=== PATIENT | female | born 1960 | race Caucasian/White ===

== ENCOUNTER 2019-12-18 12:36 | Outpatient (CLI) | payer BC, SELFPAY ==
--- NOTE | ~2019-12-18 | CT_ITS ---
EXAMINATION: CT IAC/mastoids BI w con DATE: 12/18/2019 13:15 INDICATION: Left-sided mastoiditis and pain. TECHNIQUE: Computed tomography (CT) of the temporal bones was performed with 75 mL Omnipaque 350 intr avenous contrast. Automated exposure control and iterative reconstruction technique were employed. Th e dose-length product was 208.09 mGy-cm. COMPARISON: Temporal bone CT 06/12/2008 FINDINGS: RIGHT TEMPORAL BONE: The internal auditory canal, cochlea, vestibule, semicircular canals, vestibular aqueduct, carotid ca nal, jugular bulb, facial nerve course, ossicles, Prussak space, scutum, tympanic membrane, mastoid a ir cells, and external auditory canal are normal. LEFT TEMPORAL BONE: The internal auditory canal, cochlea, vestibule, semicircular canals, vestibular aqueduct, jugular bu lb, carotid canal, facial nerve course, ossicles, Prussak space, scutum, tympanic membrane, mastoid a ir cells, and external auditory canal are normal. IMPRESSION: 1. Normal temporal bones. Reviewed, dictated and finalized at location A. ER BATH IMPRESSION: 1. Normal temporal bones.
[2019-12-18 13:44] LABS: Hematocrit 41.1 % (37.0-47.0); Hemoglobin 13.1 g/dL (12.0-15.0); Mean Corpuscular HGB Conc 31.9 g/dl (32-36); Mean Corpuscular Hemoglobin 28.6 pg (26-34); Mean Corpuscular Volume 89.7 fl (80-100); Mean Platelet Volume 11.9 fl (7.4-10.4); Platelet Count Result 151 k/mm3 (150-375); Red Blood Count 4.58 M/mm3 (4.2-5.4)
[2019-12-18 13:57] LABS: Alanine Aminotransferase 20 U/L (4-35); Albumin Level 3.7 g/dL (3.5-5.1); Alkaline Phosphatase 52 U/L (38-126); Aspartate Amino Transferase 26 U/L (14-36); Bilirubin,Total 0.4 mg/dL (0.2-1.3); Blood Urea Nitrogen 16 mg/dL (7-17); Calcium 8.7 mg/dL (8.4-10.2); Carbon Dioxide 30 mmol/L (22-30); Chloride 95 mmol/L (98-107); Estimated Glomerular Filt Rate > 60; Glucose 83 mg/dL (65-105); Sodium 135 mmol/L (137-145)
== END 2019-12-18 12:37 | disposition home or self-care (01) ==
LOC: ANHIMG 12:40
PROVIDERS: PCP Family Medicine; Visit Provider Physician Assistant Medical
DX: H70.002 Acute mastoiditis without complications, left ear (principal)
CPT/HCPCS: 36415; 70481; 80053; 85027; Q9967

== ENCOUNTER 2020-03-16 12:59 | Outpatient (CLI) | payer BC, SELFPAY ==
--- NOTE | 2020-03-16 13:01 | ECG_ITS ---
Measurements Intervals [place] Rate: 57 P: 50 MO: 165 QRS: 55 QRSD: 83 T: 28 QT: 434 QTc: 423 Interpretive Statements SINUS BRADYCARDIA BORDERLINE ECG Electronically Signed On 03-16-2020 13:32:07 CDT by Jhon Bryson D.O.
[2020-03-16 13:47] LABS: Blood Urea Nitrogen 16 mg/dL (7-17); Calcium 8.8 mg/dL (8.4-10.2); Carbon Dioxide 29 mmol/L (22-30); Chloride 101 mmol/L (98-107); Estimated Glomerular Filt Rate > 60; Glucose 82 mg/dL (65-105); Potassium 4.2 mmol/L (3.4-5.0); Sodium 134 mmol/L (137-145)
== END 2020-03-16 13:00 | disposition home or self-care (01) ==
LOC: ANHSURGERY 13:01
PROVIDERS: Physician Assistant Medical; PCP Family Medicine; Visit Provider Obstetrics & Gynecology
DX: E87.1 Hypo-osmolality and hyponatremia (principal); E78.00 Pure hypercholesterolemia, unspecified; R10.2 Pelvic and perineal pain; R94.31 Abnormal electrocardiogram [ECG] [EKG]
CPT/HCPCS: 36415; 80048; 86850; 86900; 86901; 93005

== ENCOUNTER 2020-03-18 00:28 | Outpatient (CLI) | payer BC, SELFPAY ==
[2020-03-18 17:43] LABS: SARS-CoV-2 RNA PCR Negative
== END 2020-03-18 00:29 | disposition home or self-care (01) ==
LOC: ANHCOVIDDT 00:28
PROVIDERS: PCP Family Medicine; Visit Provider Obstetrics & Gynecology
DX: Z01.818 Encounter for other preprocedural examination (principal); Z11.59 Encounter for screening for other viral diseases
CPT/HCPCS: 87635; C9803; U0003

== ENCOUNTER 2020-03-20 01:06 | Day surgery (SDC) | payer BC, SELFPAY ==
[2020-03-13 08:25] VITALS: BMI 25.4
--- NOTE | 2020-03-19 07:48 | PM.IMHP ---
H&P: HPI History of Present Illness Chief complaint: Pelvic Pain Narrative: Kylah Rodriguez is a 59 year old female Status post hysterectomy and bilateral salpingo-oophorectomy who is admitted for laparoscopy. She has pain, discomfort, it is GALE a. She had an ultrasound which was negative. Risks and benefits of this procedure reviewed in great detail. She had all questions answered. She received the [employer] handout entitled laparoscopy. She asked to proceed Review of Systems Review of Systems: All systems reviewed & are unremarkable except as noted in HPI and below PMFSH Family History Family History Father Hypertension Cerebrovascular accident Family history of coronary artery disease Acute myocardial infarction Mother Hypertension Family history of diabetes mellitus in first degree relative Other Diabetes mellitus Family history of allergic disorder Family history of kidney stones Family history of malignant neoplasm of bone Family history of malignant neoplasm of brain Family history of malignant neoplasm of breast Family history of malignant neoplasm of male breast Social History Social History Smoking status: Never smoker Alcohol intake: never Meds Home Medications and Allergies Home Medications Medication Instructions Recorded Confirmed Type aspirin 81 mg tablet,delayed 81 mg PO DAILY 09/16/19 03/13/20 History release estradiol 2 mg tablet 2 mg PO DAILY 09/16/19 03/13/20 History lovastatin 40 mg tablet 40 mg PO DAILY 09/16/19 03/13/20 History trazodone 50 mg tablet 50 mg PO HS PRN 09/16/19 03/13/20 History omeprazole 40 mg capsule,delayed 40 mg PO DAILY #90 cap 10/04/19 03/13/20 Rx release tramadol 50 mg tablet 50 mg PO Q6H PRN #60 tablet 01/21/20 03/13/20 Rx alprazolam 0.5 mg tablet 0.5 mg PO TID PRN #60 tablet 01/24/20 03/13/20 Rx acetaminophen-codeine 1 tablet PO Q4H PRN 03/13/20 03/13/20 History [Tylenol-Codeine #3] azelastine 1 spray INTRANASAL Q12H 03/13/20 03/13/20 History buspirone 7.5 mg PO BID 03/13/20 03/13/20 History cetirizine 10 mg PO QPM 03/13/20 03/13/20 History magnesium 250 mg PO DAILY 03/13/20 03/13/20 History vitamin B complex 1 tablet PO DAILY 03/13/20 03/13/20 History vitamin E 400 unit PO DAILY 03/13/20 03/13/20 History escitalopram oxalate 20 mg tablet 20 mg PO DAILY #90 tablet 03/17/20 Rx Allergies Allergy/AdvReac Type Severity Reaction Status Date / Time lidocaine Allergy Unknown Hives Verified 03/13/20 08:02 ADHESIVE BANDAGE Allergy Mild Hives Uncoded 03/13/20 08:02 Exam Const: General: no acute distress Eyes: General: appearance normal, both eyes and all related structures Neck: Neck: supple and no JVD Thyroid: thyroid normal Resp: Effort & Inspection: normal respiratory effort Auscultation: clear to auscultation bilaterally Cardio: Rate: regular rate Rhythm: regular rhythm GI: Inspection: non-distended GI Palp: Yes Soft to palpation, No Tenderness to palpation present (GI) and No Guarding due to palpation present (GI) Auscultation: normal bowel sounds : General: Yes bladder normal to palpation External Female Exam: normal external appearance Speculum Exam - Vagina: normal appearance of the vagina Speculum Exam - Cervix: Cervix absent Bimanual exam- vagina & uterus: uterus absent Bimanual Exam- Adnexa, other: tender bilaterally Skin: General skin exam: no rashes or lesions noted Extrem: General: normal to inspection and no edema Psych: Mental Status: mental status grossly normal Affect: normal affect Assessment and Plan Additional Plan Impression: Pelvic pain Plan: Diagnostic laparoscopy
[2020-03-20] VITALS (7 sets, daily range): BP systolic 99–114; BP diastolic 55–82; PULSE 51–67; RESP 12–20; TEMP 35.8–36.1; O2SAT 97–100
--- NOTE | 2020-03-20 06:38 | WPDHPUPDATE1 ---
History and Physical Update Update Date/Time: 03/20/20 06:38 History and Physical has been reviewed, including an updated exam of the patient. There are NO changes in the patient's condition. Risks, benefits, and alternatives have been discussed and questions answered. Patient agrees to proceed with procedure.
[2020-03-20] MEDS: LACTATED RINGERS 1,000 ML 30 ML IV CONT ×2 (10:30→11:54)
--- NOTE | 2020-03-20 10:34 | P.PNAN_ITS ---
Anes - Initial Pre Proc Eval Procedure: Operation Date: 03/20/20 11:30 Proposed Procedures p Diagnostic Laparoscopy - Vahid Abreu MD Date/Time: 03/20/20 10:34 Surgeon: Vahid Abreu MD Pre Op Diagnosis: Pelvic Pain Patient Data Age: 59 Gender: F Height: 5 ft 4 in Weight: 67.13 kg Allergies Allergy/AdvReac Type Severity Reaction Status Date / Time lidocaine Allergy Unknown Hives Verified 03/13/20 08:02 ADHESIVE BANDAGE Allergy Mild Hives Uncoded 03/13/20 08:02 Home Medications Medication Instructions Recorded Confirmed Type aspirin 81 mg tablet,delayed 81 mg PO DAILY 09/16/19 03/13/20 History release estradiol 2 mg tablet 2 mg PO DAILY 09/16/19 03/13/20 History lovastatin 40 mg tablet 40 mg PO DAILY 09/16/19 03/13/20 History trazodone 50 mg tablet 50 mg PO HS PRN 09/16/19 03/13/20 History omeprazole 40 mg capsule,delayed 40 mg PO DAILY #90 cap 10/04/19 03/13/20 Rx release tramadol 50 mg tablet 50 mg PO Q6H PRN #60 tablet 01/21/20 03/13/20 Rx alprazolam 0.5 mg tablet 0.5 mg PO TID PRN #60 tablet 01/24/20 03/13/20 Rx acetaminophen-codeine 1 tablet PO Q4H PRN 03/13/20 03/13/20 History [Tylenol-Codeine #3] azelastine 1 spray INTRANASAL Q12H 03/13/20 03/13/20 History buspirone 7.5 mg PO BID 03/13/20 03/13/20 History cetirizine 10 mg PO QPM 03/13/20 03/13/20 History magnesium 250 mg PO DAILY 03/13/20 03/13/20 History vitamin B complex 1 tablet PO DAILY 03/13/20 03/13/20 History vitamin E 400 unit PO DAILY 03/13/20 03/13/20 History escitalopram oxalate 20 mg tablet 20 mg PO DAILY #90 tablet 03/17/20 Rx hydrocodone-acetaminophen [[place]] 1 tablet PO Q4H PRN #30 tablet 03/20/20 Rx Patient hx anesthesia problems: none Family hx anesthesia problems: none PMFSH Past Medical History Medical History (Updated 03/20/20 @ 10:30 by Jamie Perla MD) Anxiety disorder, unspecified Depression Migraine Family History Family History Father Hypertension Cerebrovascular accident Family history of coronary artery disease Acute myocardial infarction Mother Hypertension Family history of diabetes mellitus in first degree relative Other Diabetes mellitus Family history of allergic disorder Family history of kidney stones Family history of malignant neoplasm of bone Family history of malignant neoplasm of brain Family history of malignant neoplasm of breast Family history of malignant neoplasm of male breast Social History Social History Smoking status: Never smoker Alcohol intake: never Anes - Eval Final PreProcedure Day of Procedure 03/20/20 10:34 Patient weight: normal Heart: regular rate and rhythm Lungs: clear to auscultation Airway: Mallampati scale class II Neurological: alert and oriented Last oral intake: >/= 8 hours ASA classification: II Emergent: no Anesthetic plan: proceed Anesthesia type and monitoring: general ETT and standard monitoring Informed Consent: The patient's anesthetic plan and its attendant risks and benefits were discussed with the patient/family/POA. Questions were solicited and answers provided to the satisfaction of the patient/family/POA.
--- NOTE | 2020-03-20 11:45 | PM.PROC ---
Procedure Note - Detailed Date of procedure: 03/20/20 Pre-op diagnosis: Pelvic Pain Surgeon: Vahid Abreu MD Postop diagnosis: Pelvic pain/adhesions Procedure: Laparoscopic lysis of adhesions Anesthesia: General endotracheal EBL: 5cc Findings: Absent uterus ovaries and tubes. Multiple areas of adhesions from large and small bowel to the pelvis. Complications: None Description of procedure: The patient was prepped draped in normal sterile fashion placed in the dorsal lithotomy position. Under excellent general endotracheal anesthesia weighted speculum placed posterior fornix vagina. Sponge stick was placed in vagina and the bladder blade in specimen was removed. Gloves were changed. An infraumbilical incision made and the Veress needle passed in the abdomen. Abdomen filled with CO2 gas to 15mm Hg. 5mm trocar advanced under direct visualization assuring no injury. Patient placed in Trendelenburg and a suprapubic incision made. Five trocar was advanced visualization. The above findings were seen using sharp dissection occasional cautery the adhesions brought down a sponge stick was placed in the vagina used to move back and forth to simulate wants and aspirated was noted no other abnormalities were seen. The gas was removed from the abdomen. The lower and upper site removed. The incisions closed with 4 O Monocryl and glue. Patient went to recovery in satisfactory condition. All sponge, needle, instrument counts were correct. There were no immediate complications
--- NOTE | 2020-03-20 13:10 | SUR.PHASEII ---
1310 spoke with and gave him an update, he is headed this way to [facility]
== END 2020-03-20 13:37 | disposition home or self-care (01) ==
PROVIDERS: PCP Family Medicine; Visit Provider Obstetrics & Gynecology
PROC: (CPT 49320; principal; 2020-03-20 11:30)
DX: N73.6 Female pelvic peritoneal adhesions (postinfective) (principal); R10.2 Pelvic and perineal pain; F41.8 Other specified anxiety disorders; Z79.82 Long term (current) use of aspirin
CPT/HCPCS: 58660; A9270; J0131; J0330; J1100; J2250; J2590; J2704; J3010; J7030; J7120

== ENCOUNTER 2020-04-14 16:01 | Outpatient (CLI) | payer BC, SELFPAY ==
--- NOTE | ~2020-04-14 | MM_ITS ---
EXAMINATION: MM screening [facility] BI w ozzie HISTORY: Screening mammogram TECHNIQUE: Craniocaudal and mediolateral oblique 3-D tomosynthesis images were obtained and synthetic 2-D images were generated. CAD analysis was submitted and interpreted. COMPARISON: Comparison to multiple prior studies sequentially, with oldest reviewed study dated 02/28. BREAST PARENCHYMAL COMPOSITION: There are scattered areas of fibroglandular density. FINDINGS: There is no evidence of suspicious mass, calcification, or architectural distortion to sugg est malignancy in either breast. There has been no suspicious interval change. IMPRESSION: 1. No mammographic evidence of malignancy. 2. Recommend routine screening mammography in one year. BI-RADS Category 1: Negative Reviewed, dictated and finalized at location A.
== END 2020-04-14 16:02 | disposition home or self-care (01) ==
LOC: ANHIMG 16:02
PROVIDERS: PCP Family Medicine; Visit Provider Obstetrics & Gynecology
DX: Z12.31 Encounter for screening mammogram for malignant neoplasm of breast (principal)
CPT/HCPCS: 77063; 77067

== ENCOUNTER 2020-05-08 01:21 | Outpatient (CLI) | payer BC, SELFPAY ==
[2020-05-09 18:47] LABS: SARS-CoV-2 RNA PCR Negative
== END 2020-05-08 01:22 | disposition home or self-care (01) ==
LOC: ANHCOVIDDT 01:21
PROVIDERS: PCP Family Medicine; Visit Provider Orthopaedic Surgery
DX: Z01.818 Encounter for other preprocedural examination (principal); Z11.59 Encounter for screening for other viral diseases
CPT/HCPCS: 87635; C9803; U0003

== ENCOUNTER 2020-05-11 00:55 | Day surgery (SDC) | payer BC, SELFPAY ==
[2020-05-04 12:08] VITALS: BMI 24.0
[2020-05-11] VITALS (7 sets, daily range): BP systolic 118–139; BP diastolic 61–94; PULSE 59–78; RESP 7–20; TEMP 36.3–36.6; O2SAT 96–100
--- NOTE | ~2020-05-11 | XR_ITS ---
XR surgery orthopedic 05/11/2020 10:00 Indication: Right foot surgery. Right second crossover toe. Procedure: 4 views right foot. 4 seconds of fluoroscopy. Comparison: No prior studies for comparison. Findings: There are surgical changes consistent with second metatarsal osteotomy with pin placement. There is anatomic alignment post reduction. Impression: 1: Postsurgical changes of the second digit consistent with metatarsal osteotomy. Please refer to pro cedural report for details. Reviewed, dictated and finalized at location A. Impression: 1: Postsurgical changes of the second digit consistent with metatarsal osteotom y. Please refer to procedural report for details.
--- NOTE | 2020-05-11 07:00 | WPDHPUPDATE1 ---
History and Physical Update Update Date/Time: 05/11/20 07:00 History and Physical has been reviewed, including an updated exam of the patient. There are NO changes in the patient's condition. Covid test negative. Risks, benefits, and alternatives have been discussed and questions answered. Patient agrees to proceed with procedure.
--- NOTE | 2020-05-11 07:35 | P.PNAN_ITS ---
Anes - Initial Pre Proc Eval Procedure: Operation Date: 05/11/20 09:30 Proposed Procedures p Right Foot Second Crossover Toe Reconstruction, Right Foot Metatarsal Osteotomy - Efren Trevizo MD Date/Time: 05/11/20 07:35 Surgeon: Efren Trevizo MD Pre Op Diagnosis: Right Second Crossover Toe Patient Data Age: 59 Gender: F Height: 1.63 m Weight: 63.5 kg Allergies Allergy/AdvReac Type Severity Reaction Status Date / Time lidocaine Allergy Severe Hives Verified 05/04/20 11:58 latex Allergy Unknown Rash Verified 05/04/20 11:58 ADHESIVE BANDAGE Allergy Mild Hives Uncoded 05/04/20 11:58 Home Medications Medication Instructions Recorded Confirmed Type aspirin 81 mg tablet,delayed 81 mg PO DAILY 09/16/19 05/04/20 History release estradiol 2 mg tablet 2 mg PO DAILY 09/16/19 05/04/20 History trazodone 50 mg tablet 50 mg PO HS PRN 09/16/19 05/04/20 History tramadol 50 mg tablet 50 mg PO Q6H PRN #60 tablet 01/21/20 05/04/20 Rx alprazolam 0.5 mg tablet 0.5 mg PO TID PRN #60 tablet 01/24/20 05/04/20 Rx buspirone 7.5 mg PO BID 03/13/20 05/04/20 History cetirizine 10 mg PO QPM 03/13/20 05/04/20 History magnesium 250 mg PO DAILY 03/13/20 05/04/20 History vitamin B complex 1 tablet PO DAILY 03/13/20 05/04/20 History vitamin E 400 unit PO DAILY 03/13/20 05/04/20 History escitalopram oxalate 20 mg tablet 20 mg PO DAILY #90 tablet 03/17/20 05/04/20 Rx lovastatin 40 mg tablet 40 mg PO DAILY #90 tablet 04/29/20 05/04/20 Rx omeprazole 40 mg PO DAILY PRN 05/04/20 05/04/20 History Patient hx anesthesia problems: none Family hx anesthesia problems: none PMFSH Past Medical History Medical History (Updated 05/11/20 @ 07:35 by Patel Duncan DO) Anxiety disorder, unspecified Chronic pain Depression GERD (gastroesophageal reflux disease) Hyperlipidemia Migraine Surgical History Surgical History (Updated 05/11/20 @ 07:35 by Patel Duncan DO) History of History of hysterectomy History of tonsillectomy Social History Social History Years smoked: 2 Smoking status: Current some day smoker Tobacco type: cigarettes Alcohol intake: never Substance use: current Substance use type: marijuana Other substance usage details: occassional Last use: 2 days ago Living arrangements: with family Spiritual care concerns: No Anes - Eval Final PreProcedure Day of Procedure 05/11/20 07:35 Patient weight: normal Heart: regular rate and rhythm Lungs: clear to auscultation and normal air movement Airway: Mallampati scale class II Neurological: alert and oriented Last oral intake: >/= 8 hours ASA classification: III Emergent: no Anesthetic plan: proceed Anesthesia type and monitoring: general LMA and standard monitoring Informed Consent: The patient's anesthetic plan and its attendant risks and benefits were discussed with the patient/family/POA. Questions were solicited a nd answers provided to the satisfaction of the patient/family/POA.
[2020-05-11] MEDS: ACETAMINOPHEN 500 MG TABLET 1000 MG PO (08:10)
[2020-05-11] MEDS: LACTATED RINGERS 1,000 ML 30 ML IV CONT ×2 (08:15→10:12)
[2020-05-11] MEDS: KETOROLAC 15 MG/ML VIAL (*BKC) IV PUSH (08:20)
[2020-05-11] MEDS: ceFAZolin 2 GM/D5W 50 ML 2 GM/50 ML BAG IVPB (08:52)
--- NOTE | 2020-05-11 10:37 | PM.PROC ---
Procedure Note - Detailed Date of procedure: 05/11/20 Pre-op diagnosis: Right Second Crossover Toe Post-op diagnosis: same Procedure performed: Right 2nd crossover toe reconstruction, 2nd metatarsal osteotomy Description of procedure: Indications: Patient is a 59-year-old woman with a right 2nd crossover toe deformity, relatively long 2nd toe and forefoot pain. Initially had an injury 1 year ago. Attempted conservative treatment without improvement. Presents now for operative treatment. What was done: Patient identified in the preoperative holding. Informed consent given. Operative extremity marked. Patient received intravenous antibiotics. Patient brought to the operating room where underwent general anesthetic by anesthesia team. Positioned supine on operating room table. Time-out performed confirming the patient, site of the surgery and the plan. Right foot prepped draped usual sterile surgical fashion using a ChloraPrep skin solution. Foot and ankle exsanguinated and calf tourniquet inflated to 225 mmHg. Dorsal longitudinal incision made over the 2nd metatarsophalangeal joint with 15 blade knife. Hemostasis controlled electrocautery. Extensor tendon retracted laterally and a dorsal capsulotomy performed. Joint inspected and a tear of the plantar lateral plantar plate noted. Excessive length of the 2nd toe corrected with a 2nd metatarsal osteotomy. Sagittal saw used to make a horizontal osteotomy at the dorsal aspect of the metatarsal head. Metatarsal head fragment allowed to shorten 3 mm and provisionally pinned and checked with image intensification. Fixation achieved with a 2.5 mm twist off screw with good fixation noted. Wound thoroughly irrigated. Plantar plate then addressed. Size 0 FiberWire passed through the plantar plate after completely releasing it from the proximal phalanx. 0.062 in K-wires used to drill 2 holes in the base of the proximal phalanx. Suture passed through the proximal phalanx and with the toe in a corrected plantar flex position suture tied over the dorsum of the proximal phalanx. Foot was placed in neutral and good alignment of the toe was noted. Image intensification confirmed position. Wound thoroughly irrigated. Capsule closed with 3 0 Monocryl interrupted suture. Subcutaneous tissue repaired with 3 0 Monocryl interrupted suture and skin repaired with 4 O nylon running suture. Sterile dressing applied. The patient was then woken from anesthesia, extubated and taken to the recovery room in stable condition. All sponge, needle, instrument counts were correct at the end of the case. Implants: Arthrex 2.5 mm x 11 mm twist off screw Anesthesia: GLMA Surgeon: Efren Trevizo MD Banking Teacher: 1st project construction assistant manager Estimated blood loss (mL): 5 Tourniquet time (min): 60 Drains: No Packing: No Pathology: none sent Complications: None Condition: stable Disposition: PACU
== END 2020-05-11 11:37 | disposition home or self-care (01) ==
PROVIDERS: PCP Family Medicine; Visit Provider Orthopaedic Surgery
PROC: (CPT 28750; principal; 2020-05-11 09:30)
DX: M20.5X1 Other deformities of toe(s) (acquired), right foot (principal); E78.5 Hyperlipidemia, unspecified; F41.8 Other specified anxiety disorders; K21.9 Gastro-esophageal reflux disease without esophagitis; G89.29 Other chronic pain; Z79.82 Long term (current) use of aspirin; F17.210 Nicotine dependence, cigarettes, uncomplicated; F12.90 Cannabis use, unspecified, uncomplicated
CPT/HCPCS: 28313; 28308; A9270; C1713; J0690; J1100; J1200; J1885; J2250; J2405; J2704; J3010; J7120

== ENCOUNTER → 2020-11-26 12:14 | Outpatient (CLI) | payer BC, SELFPAY ==
--- NOTE | ~2020-11-26 | MR_ITS ---
EXAMINATION: MR hip RT wo con DATE: 11/26/2020 13:28 INDICATION: Right hip pain TECHNIQUE: Magnetic resonance imaging (MRI) of the right hip was performed without intravenous contr ast. Sequences included full-field axial PD-weighted FS FSE and T1-weighted FSE, coronal of the pelvi s with PD-weighted FS FSE, small field of view of the right hip with axial PD-weighted FS FSE, sagit benjamin PD-weighted FS FSE and coronal PD weighted FS FSE. Additional radial T1-weighted FGR oriented ort hogonal to the acetabular rim were obtained for evaluation of the labrum. COMPARISON: Right hip radiographs dated 11/19/2020 FINDINGS: Bones/labrum/cartilage: Alignment is normal. No fracture, avascular necrosis or pathologic marrow replacing process. Labrum is normal. Articular cartilage is normal. Fluid: Symmetric physiologic amount of fluid within both hip joints. Soft tissues: Normal and symmetric muscle bulk and signal in the pelvis and visualized proximal thighs. Mild right gluteus medius tendinopathy without discrete tear. The remaining bilateral gluteal tendons are normal . The iliopsoas and proximal hamstring tendons are normal. The uterus is not identified and has likel y been surgically resected. Limited evaluation of visceral organs of the pelvis is otherwise unremark able. No pathologically enlarged pelvic/inguinal lymphadenopathy. IMPRESSION: 1. Mild gluteus medius tendinopathy without discrete tear. Reviewed, dictated and finalized at location A. [employer]
--- NOTE | ~2020-11-26 | MR_ITS ---
EXAMINATION: MR knee RT wo con DATE: 11/26/2020 13:08 INDICATION: Right knee pain TECHNIQUE: Magnetic resonance imaging (MRI) of the right knee was performed without intravenous contr ast. Sequences included coronal PD-weighted FSE, coronal PD-weighted FS FSE, sagittal T2-weighted FS E, sagittal PD-weighted FS FSE and axial PD weighted fat saturated FSE. COMPARISON: None. FINDINGS: Medial compartment: Longitudinal horizontal tear extending to approximately the midpoint of the inferior articular surfac e at the body and posterior horn of the medial meniscus. Chondral ulceration with partial-thickness c artilage loss and chondral surface regularity along the anterior to central weightbearing medial femo ral condyle and along the anterior medial tibial plateau. No degenerative subchondral changes. Lateral compartment: Lateral meniscus is normal. Full-thickness chondral defect with shallow concavity to the articular co rtex at the anterior weightbearing lateral femoral condyle which measures approximately 11 mm AP by 7 mm medial to lateral. No underlying marrow edema to suggest an acute injury. Partial thickness chond ral fissuring along the medial side of the lateral tibial plateau along the shoulder the intercondyla r eminence. Patellofemoral compartment: Deep chondral ulceration at the medial patellar facet and patellar apical ridge with minimal underlyi ng marrow edema. Partial-thickness chondral ulceration and fissuring at the caudal aspect of the troc hlear groove and medial trochlea, the latter with underlying small region of cortical irregularity. Ligaments and tendons: Anterior and posterior cruciate ligaments are normal. The medial collateral ligament and fibular isauro ateral ligament complex are normal. There is scarring along the lateral patellofemoral retinaculum wi th tiny focus of susceptibility artifact suggesting prior surgery potentially for correction of wilder lar maltracking or retinacular repair. Extensor mechanism is otherwise normal. The visualized medial and lateral hamstring tendons as well as the iliotibial band are normal. Fluid: Physiologic amount of fluid in the joint space. No loose osteochondral bodies identified. Small Man 's cyst. Osseous/other: Normal marrow signal. No fracture or pathologic marrow replacing process. Mild edema at the superfici al suprapatellar fat pad. IMPRESSION: 1. Medial meniscal tear. 2. Chronic appearing full-thickness osteochondral defect with shallow concavity to the articular christel ex at the anterior weightbearing lateral femoral condyle. 3. 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 4. Likely postoperative scarring of the lateral patellar retinaculum. Correlate with surgical history . 5. Edema in the superficial suprapatellar fat pad which can be seen with fat pad impingement syndrome . 6. Small Man's cyst. Reviewed, dictated and finalized at location A. [employer] SAF[employer] IMPRESSION: 1. Medial meniscal tear. 2. Chronic appearing full-thickness osteochondral defect with shallow concavity to the articular cortex at the anterior weightbearing lateral femoral condyle. 3. 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 4. Likely postoperative scarring of the lateral patellar retinaculum.
== END ==
PROVIDERS: PCP Family Medicine; Visit Provider Nurse Practitioner Family
DX: M25.551 Pain in right hip (principal); S83.241A Other tear of medial meniscus, current injury, right knee, initial encounter; X58.XXXA Exposure to other specified factors, initial encounter; M71.21 Synovial cyst of popliteal space [Baker], right knee
CPT/HCPCS: 73721

== ENCOUNTER → 2020-12-19 01:08 | Outpatient (CLI) | payer BC, SELFPAY ==
[2020-12-19 19:48] LABS: SARS-CoV-2 RNA PCR Negative
== END ==
PROVIDERS: PCP Family Medicine; Visit Provider Orthopaedic Surgery
DX: Z01.812 Encounter for preprocedural laboratory examination (principal); Z20.822 Contact with and (suspected) exposure to COVID-19
CPT/HCPCS: C9803; U0003; U0005

== ENCOUNTER 2020-12-23 02:03 | Day surgery (SDC) | payer BC, SELFPAY ==
[2020-12-16 16:48] VITALS: BMI 23.3
--- NOTE | 2020-12-22 09:49 | WPDANESEPPF ---
Anes - Initial Pre Proc Eval Procedure: Operation Date: 12/23/20 13:00 Proposed Procedures p Right Knee Arthroscopy, Proceed As Indicated - Houston Neves MD Date/Time: 12/22/20 09:49 Surgeon: Houston Neves MD Pre Op Diagnosis: Right knee Medial Meniscus Tear Patient Data Age: 60 Gender: F Height: 1.68 m Weight: 65.77 kg Allergies Allergy/AdvReac Type Severity Reaction Status Date / Time lidocaine Allergy Severe Hives Verified 12/23/20 11:14 latex Allergy Unknown Rash Verified 12/23/20 11:14 ADHESIVE BANDAGE Allergy Mild Hives Uncoded 12/23/20 11:14 Home Medications Medication Instructions Recorded Confirmed Type aspirin 81 mg tablet,delayed 81 mg PO DAILY 09/16/19 12/23/20 History release estradiol 2 mg tablet 2 mg PO DAILY 09/16/19 12/23/20 History cetirizine 10 mg PO QPM 03/13/20 12/23/20 History magnesium 250 mg PO DAILY 03/13/20 12/23/20 History vitamin E 400 unit PO DAILY 03/13/20 12/23/20 History alprazolam 0.5 mg tablet 0.5 mg PO TID PRN #60 tablet 10/02/20 12/23/20 Rx buspirone 7.5 mg tablet 7.5 mg PO BID #180 tablet 10/02/20 12/23/20 Rx lovastatin 40 mg tablet 40 mg PO DAILY #90 tablet 10/02/20 12/23/20 Rx escitalopram oxalate 20 mg tablet 20 mg PO DAILY #90 tablet 12/10/20 12/23/20 Rx azelastine 137 mcg INTRANASAL DAILY 12/16/20 12/23/20 History Patient hx anesthesia problems: none Family hx anesthesia problems: none PMFSH Past Medical History Medical History (Updated 12/03/20 @ 10:32 by CANDE Cordova) Acute right hip pain Anxiety Anxiety disorder, unspecified BMI 25.0-25.9,adult Chronic pain Degenerative joint disease of knee Depression Effusion of right knee joint GERD (gastroesophageal reflux disease) Hyperlipidemia Medial meniscus tear Migraine Need for Tdap vaccination Right knee pain Screen for colon cancer Screening for lipid disorders Stress fracture Tendinopathy of gluteus medius Tobacco abuse Surgical History Surgical History History of History of foot surgery April 2020-Dr. Trevizo History of hysterectomy History of tonsillectomy Family History Family History Father Hypertension Cerebrovascular accident Family history of coronary artery disease Acute myocardial infarction Mother Hypertension Family history of diabetes mellitus in first degree relative Other Diabetes mellitus Family history of allergic disorder Family history of kidney stones Family history of malignant neoplasm of bone Family history of malignant neoplasm of brain Family history of malignant neoplasm of breast Family history of malignant neoplasm of male breast Social History Social History (Updated 12/03/20 @ 10:09 by Zahida Ball) Years smoked: 2 Smoking status: Former smoker Tobacco type: cigarettes Alcohol intake: never Substance use: current Substance use type: marijuana Other substance usage details: occassional Last use: 2 days ago Living arrangements: with family Spiritual care concerns: No Anes - Eval Final PreProcedure Day of Procedure 12/22/20 09:49 Patient weight: normal Heart: regular rate and rhythm Lungs: clear to auscultation and normal air movement Airway: Mallampati scale class II Neurological: alert and oriented Last oral intake: >/= 8 hours ASA classification: II Emergent: no Anesthetic plan: proceed Anesthesia type and monitoring: general LMA Informed Consent: The patient's anesthetic plan and its attendant risks and benefits were discussed with the patient/family/POA. Questions were solicited and answers provided to the satisfaction of the patient/family/POA.
[2020-12-23] VITALS (8 sets, daily range): BP systolic 119–162; BP diastolic 56–87; PULSE 56–95; RESP 10–18; TEMP 36.1–36.4; O2SAT 97–100; BMI 23.8
--- NOTE | 2020-12-23 07:20 | WPDHPUPDATE1 ---
History and Physical Update Update Date/Time: 12/23/20 07:20 History and Physical has been reviewed, including an updated exam of the patient. There are NO changes in the patient's condition. Risks, benefits, and alternatives have been discussed and questions answered. Patient agrees to proceed with procedure.
[2020-12-23] MEDS: CELECOXIB 200 MG CAPSULE PO (11:35)
[2020-12-23] MEDS: ACETAMINOPHEN 500 MG TABLET 1000 MG PO (11:35)
[2020-12-23] MEDS: LACTATED RINGERS 1,000 ML 30 ML IV CONT ×2 (11:46→16:26)
--- NOTE | 2020-12-23 14:01 | SUR.PREOP ---
PT UPDATED. WILL BE ANOTHER 30 MINUTES
[2020-12-23] MEDS: ceFAZolin 2 GM/D5W 50 ML 2 GM/50 ML BAG IVPB (14:54)
--- NOTE | 2020-12-23 16:40 | PM.PROC ---
Procedure Note - Detailed Date of procedure: 12/23/20 Pre-op diagnosis: Right knee Medial Meniscus Tear Post-op diagnosis: other (SAME PLUS LARGE OSTEOCHONDRAL DEFECT LATERAL FEMORAL CONDYLE, MILD DJD MEDIAL FEMORAL CONDYLE AND PATELLA FEMORAL JOINT) Procedure performed: RIGHT KNEE SCOPE WITH PARTIAL MEDIAL MENISCECTOMY, PARTIAL LATERAL MENISCECTOMY AND MAJOR SYNOVECTOMY Description of procedure: PATIENT WAS TAKEN TO THE OR. RIGHT LEG WAS PREPPED AND DRAPED STERILE. TROCARS WERE PLACED IN THE USUAL FASHION. CAMERA WAS INTRODUCED. THERE WAS CHONDROMALACIA TO THE PATELLA FEMORAL JOINT. THERE WAS A LOT OF SYNOVITIS IN ALL COMPARTMENTS. THE MEDIAL COMPARTMENT SHOWED CHONDROMALACIA TO THE MED FEMORAL CONDYLE. A SHAVER WAS USED TO PREFORM A CHONDROPLASTY. THERE WAS A COMPLEX MEDIAL MENISCUS TEAR. THE TEAR WAS RESECTED WITH A BITER AND A SHAVER DOWN TO A SMOOTH BASE. ABOUT 25% OF THE MENISCUS WAS REMOVED. THE ACL WAS INTACT WITH A PARTIAL TEAR. THE LATERAL MENISCUS WAS NOT TORN. THE LATERAL COMPARTMENT HAD A LARGE DEFECT OVER PART OF THE LATERAL FEMORAL CONDYLE. THIS APPEARED TO BE AN OLD DEFECT AND THE EXPOSED BONE APPEARED TO HAVE NO HEALING. CHONDROPLASTY WAS PREFORMED. A SYNOVECTOMY WAS PREFORMED WELL. THE PATELLO FEMORAL JOINT UNDERWENT CHONDROPLASTY OVER THE GRADE 4 CHONDROMALACIA. THERE WAS GRADE 3 CHONDROMALACIA IN MOST OF THE TROCHLEA AND PART OF THE PATELLA AND ONE COMPLETE FULL THICKNESS DEFECT OVER THE PROXIMAL POLE REGION.. SYNOVECTOMY WAS PREFORMED IN THE SUPERIOR MEDIAL COMPARTMENT. THE KNEE JOINT WAS IRRIGATED THOROUGHLY .THE WOUNDS WERE APPROXIMATED WITH 4.0 NYLON. STERILE DRESSING WAS APPLIED. PATIENT WAS EXTUBATED. Anesthesia: GLMA Surgeon: Houston Neves MD Estimated blood loss (mL): 5 Complications: No immediate complications Condition: stable Disposition: PACU
[2020-12-23] MEDS: fentaNYL CITRATE INJ (*CRX) 100 MCG/2 ML VIAL 25 MCG IV PUSH ×4 (16:43→16:52)
[2020-12-23] MEDS: KETOROLAC 30 MG/ML VIAL (*BKC) IV PUSH (17:07)
[2020-12-23] MEDS: HYDROmorphone HCL INJ (*CRX) 1 MG/ML SYR 0.25 MG IV PUSH ×2 (17:18→17:25)
[2020-12-23] MEDS: oxyCODONE HCL (*CRX) 5 MG TAB IR PO (18:03)
== END 2020-12-23 18:39 | disposition home or self-care (01) ==
PROVIDERS: PCP Family Medicine; Visit Provider Orthopaedic Surgery
PROC: (CPT 29870; principal; 2020-12-23 13:00)
DX: S83.231A Complex tear of medial meniscus, current injury, right knee, initial encounter (principal); S83.511A Sprain of anterior cruciate ligament of right knee, initial encounter; M94.261 Chondromalacia, right knee; M65.861 Other synovitis and tenosynovitis, right lower leg; M24.19 Other articular cartilage disorders, other specified site; W00.0XXA Fall on same level due to ice and snow, initial encounter; E78.5 Hyperlipidemia, unspecified; F41.8 Other specified anxiety disorders; Z79.82 Long term (current) use of aspirin; Z87.891 Personal history of nicotine dependence; F12.90 Cannabis use, unspecified, uncomplicated
CPT/HCPCS: 29881; 29876; A9270; J0690; J1100; J1170; J1885; J2250; J2400; J2405; J2704; J3010; J7120

== ENCOUNTER 2021-04-28 09:15 | Outpatient (CLI) | payer BC, SELFPAY ==
--- NOTE | ~2021-04-28 | MM_ITS ---
EXAMINATION: MM screening [facility] BI w ozzie HISTORY: Screening mammogram TECHNIQUE: Craniocaudal and mediolateral oblique 3-D tomosynthesis images were obtained and synthetic 2-D images were generated. CAD analysis was submitted and interpreted. COMPARISON: 04/14/2020, 03/29/2019, 12/20/2017, 06/26/2017 BREAST PARENCHYMAL COMPOSITION: There are scattered areas of fibroglandular density. FINDINGS: There is no evidence of suspicious mass, calcification, or architectural distortion to sugg est malignancy in either breast. There has been no suspicious interval change. IMPRESSION: 1. No mammographic evidence of malignancy. 2. Recommend routine screening mammography in one year. BI-RADS Category 1: Negative Reviewed, dictated and finalized at location A.
== END 2021-04-28 09:16 | disposition home or self-care (01) ==
LOC: ANHIMG 09:17
PROVIDERS: PCP Family Medicine; Visit Provider Obstetrics & Gynecology
DX: Z12.31 Encounter for screening mammogram for malignant neoplasm of breast (principal)
CPT/HCPCS: 77063; 77067

== ENCOUNTER 2022-08-18 08:42 | Outpatient (CLI) | payer BC, SELFPAY ==
--- NOTE | ~2022-08-18 | MM_ITS ---
EXAMINATION: MM screening [facility] w [facility]zzie HISTORY: Screening TECHNIQUE: Craniocaudal and mediolateral oblique 3-D tomosynthesis images were obtained and synthetic 2-D images were generated. CAD analysis was submitted and interpreted. COMPARISON: Comparison to multiple prior studies sequentially, with oldest reviewed study dated 02/28. BREAST PARENCHYMAL COMPOSITION: There are scattered areas of fibroglandular density. FINDINGS: There is no evidence of suspicious mass, calcification, or architectural distortion to sugg est malignancy in either breast. There has been no suspicious interval change. IMPRESSION: 1. No mammographic evidence of malignancy. 2. Recommend routine screening mammography in one year. BI-RADS Category 1: Negative Reviewed, dictated and finalized at location A.
== END 2022-08-18 08:43 | disposition home or self-care (01) ==
PROVIDERS: PCP Family Medicine; Visit Provider Obstetrics & Gynecology
DX: Z12.31 Encounter for screening mammogram for malignant neoplasm of breast (principal)
CPT/HCPCS: 77063; 77067

== ENCOUNTER 2023-12-26 14:07 | Outpatient (CLI) | payer BC, SELFPAY ==
--- NOTE | ~2023-12-26 | MM_ITS ---
EXAMINATION: MM screening [facility] w [facility]zz[facility] HISTORY: Screening mammogram TECHNIQUE: Craniocaudal and mediolateral oblique 3-D tomosynthesis images were obtained and synthetic 2-D images were generated. CAD analysis was submitted and interpreted. COMPARISON: 08/18/2022, 04/28/2021, 04/14/2020 bilateral screening mammogram examinations BREAST PARENCHYMAL COMPOSITION: There are scattered areas of fibroglandular density. FINDINGS: There is no evidence of suspicious mass, calcification, or architectural distortion to sugg est malignancy in either breast. There has been no suspicious interval change. IMPRESSION: 1. No mammographic evidence of malignancy. 2. Recommend routine screening mammography in one year. BI-RADS Category 1: Negative Reviewed, dictated and finalized at location A.
== END 2023-12-26 14:08 | disposition home or self-care (01) ==
PROVIDERS: PCP Family Medicine; Visit Provider Obstetrics & Gynecology
DX: Z12.31 Encounter for screening mammogram for malignant neoplasm of breast (principal)
CPT/HCPCS: 77063; 77067

== ENCOUNTER 2025-04-11 08:55 | Outpatient (CLI) | payer BC, SELFPAY ==
--- NOTE | ~2025-04-11 | MM_ITS ---
EXAMINATION: MM screening [facility] BI w ozzie HISTORY: Screening mammogram TECHNIQUE: Craniocaudal and mediolateral oblique 3-D tomosynthesis images were obtained and synthetic 2-D images were generated. CAD analysis was submitted and interpreted. COMPARISON: 12/26/2023, 08/18/2022, 04/28/2021 BREAST PARENCHYMAL COMPOSITION:Not Dense. There are scattered areas of fibroglandular density. FINDINGS: No suspicious mass, calcification, or architectural distortion are identified in either rick ast to suggest malignancy. There has been no suspicious interval change. IMPRESSION: No mammographic evidence of malignancy. Recommend routine screening mammography in one year. BI-RADS Category 1: Negative Reviewed, dictated and finalized at location .
== END 2025-04-11 08:56 | disposition home or self-care (01) ==
LOC: ANHIMG 08:57
PROVIDERS: PCP Family Medicine; Visit Provider Obstetrics & Gynecology
DX: Z12.31 Encounter for screening mammogram for malignant neoplasm of breast (principal)
CPT/HCPCS: 77063; 77067